=== PATIENT | female | born 1990 | race Caucasian/White ===

== ENCOUNTER → 2019-06-22 | Emergency (ER) | payer OTHER ==
[~2019-06-22] VITALS: Ht 170.2 cm; Wt 68.0 kg
[~2019-06-22] MED LIST: CEPH-443 PO; DEXAMETHASONE 10 MG/ML 1 ML INJ IM ONE; HYDROCODONE/APAP (10/325) TAB PO ONE; IBUP-1542 PO; traMADol 50 MG TAB PO ONE
[2019-06-22 10:36] VITALS: BP 120/79; PULSE 91; RESP 16; Ht 170.2 cm; Wt 68.0 kg
== END | disposition home or self-care (01) ==
LOC: FTE 10:33
DX: M54.5 Low back pain (principal); N39.0 Urinary tract infection, site not specified
CPT/HCPCS: 81001; 81025; J1100; Z7610; 96372